=== PATIENT | male | born 1970 | race Caucasian/White ===

== ENCOUNTER → 2017-06-03 | Outpatient (CLI) | payer BC | LOC: M RAD 12:56 | DX: J93.11 Primary spontaneous pneumothorax (principal) | CPT/HCPCS: 71250 ==

== ENCOUNTER → 2017-06-06 | Outpatient (CLI) | payer BC | LOC: M SMT 10:49 | DX: J94.8 Other specified pleural conditions (principal) | CPT/HCPCS: 71046 ==